=== PATIENT | male | born 1955 | race Caucasian/White ===

== ENCOUNTER 2022-01-11 08:40 | Emergency (ER) | payer OTHER, MEDICARE ==
[~2022-01-11 08:40] MED LIST: ACTOS30 MG PO; AMARYL4 MG PO; ASCORBIC ACID500 MG PO; ASPIRIN EC81 MG PO; CERTAGEN1 EACH PO; FLEXERIL5 MG PO; GLUCOPHAGE1000 MG PO; IBUPROFEN800 MG PO; IRON325 M1 PO; LIPITOR40 MG PO; LISINOPRIL-HCT1 EAC1 PO; NEURONTIN400 MG PO; NORCO 5-325 TA1 EACH PO; NORVASC 10MG TA10 MG PO; VITAMIN B122500 MCG PO
[2022-01-11 09:34] LABS: BASOPHIL 0.4 % (0-2); EOSINOPHIL 0.9 % (0-7); HGB 10.5 g/dl (13.2-18.0); LYMPHOCYTE 3.9 % (15-48); MCH 32.4 pg (25.0-31.0); MCHC 32.8 g/dL (32.0-36.0); MCV 98.8 fL (78.0-100.0); MONOCYTE 5.2 % (0-12); NEUTROPHIL 88.7 % (41-80); NRBC 0; PLT 165 K/uL (150-400); RBC 3.24 M/uL (4.70-6.00); RDW 13.2 % (11.5-14.0); WBC 5.4 K/uL (4.0-10.5)
[2022-01-11 09:44] LABS: INR 1.13 (0.9-1.2); PROTHROMBIN TIME 13.9 SECONDS (11.8-13.4)
[2022-01-11 09:51] LABS: ALKALINE PHOSHATASE 38 U/L (46-116); ALT 89 U/L (16-63); AST 85 U/L (15-37); BILIRUBIN - TOTAL 0.4 mg/dL (0.2-1.0); BUN 38 mg/dL (7-18); BUN/CREAT RATIO (CALC) 24.5 RATIO; CHLORIDE 103 mmol/L (98-107); CO2 (BICARBONATE) 24 mmol/L (21-32); CREATININE 1.55 mg/dL (0.67-1.17); GLOBULIN (CALCULATION) 2.5 g/dL; GLUCOSE 191 mg/dL (74-106); LIPASE 54 U/L (73-393); TOTAL PROTEIN 5.5 g/dL (6.4-8.2)
== END 2022-01-11 11:44 | disposition other institution (70) ==
LOC: FER 08:40
PROVIDERS: Emergency Medicine
DX: S72.012A Unspecified intracapsular fracture of left femur, initial encounter for closed fracture (principal); S32.592A Other specified fracture of left pubis, initial encounter for closed fracture; S22.43XA Multiple fractures of ribs, bilateral, initial encounter for closed fracture; S32.492A Other specified fracture of left acetabulum, initial encounter for closed fracture; S01.01XA Laceration without foreign body of scalp, initial encounter; I12.9 Hypertensive chronic kidney disease with stage 1 through stage 4 chronic kidney disease, or unspecified chronic kidney disease; E11.22 Type 2 diabetes mellitus with diabetic chronic kidney disease; N18.4 Chronic kidney disease, stage 4 (severe); Z88.0 Allergy status to penicillin; V49.40XA Driver injured in collision with unspecified motor vehicles in traffic accident, initial encounter
CPT/HCPCS: 36415; 70450; 71260; 72125; 72128; 72131; 73552; 80053; 83690; 85025; 85610; 85730; 86900; 86901; G0480; J7030